=== PATIENT | male | born 1930 | race Caucasian/White ===

== ENCOUNTER → 2017-06-23 | Outpatient (CLI) | payer MEDICARE, OTHER ==
[~2017-06-23] MED LIST: ACET-1757 PO; ASPI-515 PO; ASPI325T80 PO; CALC-112 PO; CHOL20002 PO; CLOP75TA52 PO; CYAN2000 PO; ESOM40CA PO; FURO20TA3 PO; FURO80TA3 PO; GLIP10TA13 PO; GLIP5TAB22 PO; IRBE150T49 PO; IRON1TAB37 PO; LEVO175T2 PO; PIOG30TA23 PO; POTA20PA25 PO; SIMV10TA PO; SITA50TA PO; VIT1TABL32 PO
== END | disposition home or self-care (01) ==
LOC: ROC 13:46
PROVIDERS: ATTEND Radiology Radiation Oncology
DX: G93.9 Disorder of brain, unspecified (principal); E11.22 Type 2 diabetes mellitus with diabetic chronic kidney disease; N18.9 Chronic kidney disease, unspecified; I48.0 Paroxysmal atrial fibrillation; Z85.820 Personal history of malignant melanoma of skin
CPT/HCPCS: G0463

== ENCOUNTER 2017-08-27 06:30 | Inpatient (IN) | payer MEDICARE, OTHER ==
[~2017-08-27] VITALS: Ht 185.4 cm; Wt 112.5 kg
[2017-08-27] MEDS ORDERED: FENTANYL PF 100 MCG/2ML ONE (08:23)
[2017-08-27] MEDS ORDERED: OXYcodone/APAP 5/325MG TABLET ONE (08:23)
[2017-08-27] MEDS ORDERED: FENTANYL PF 100 MCG/2ML IV ONE (08:30)
[2017-08-27] MEDS ORDERED: OXYcodone/APAP 5/325MG TABLET PO ONE (08:30)
[2017-08-27] MEDS ORDERED: DONE10TA56 PO (08:40)
[2017-08-27 08:42] LABS: BASOPHILS % (AUTO) 0 % (0-1); EOSINOPHILS # (AUTO) 0.12 x10^3/uL (0-0.4); EOSINOPHILS % (AUTO) 2 % (1-7); LYMPHOCYTES % (AUTO) 11 % (22-44); MD NO; MEAN CORPUSCULAR HEMOGLOBIN 31.9 pg (27.5-34.5); MEAN CORPUSCULAR HGB CONC 34.5 g/dL (33.2-36.2); MEAN CORPUSCULAR VOLUME 92.4 fL (81-97); MEAN PLATELET VOLUME 7.3 fL (7.4-10.4); MONOCYTES # (AUTO) 0.46 x10^3/uL (0.2-0.8); MONOCYTES % (AUTO) 6 % (2-9); NEUTROPHILS # (AUTO) 5.89 x10^3/uL (1.8-6.8); NEUTROPHILS % (AUTO) 81 % (42-75); PLATELET COUNT 113 x10^3/uL (130-400); RED BLOOD COUNT 3.72 x10^6/uL (4.38-5.82); RED CELL DISTRIBUTION WIDTH 13.8 % (9.4-14.8)
[2017-08-27 08:49] LABS: PROTHROMBIN TIME 10.4 Seconds (9.6-11.5)
[2017-08-27 08:53] LABS: ALBUMIN 3.4 g/dL (3.4-5.0); ANION GAP 7 mmol/L (5-15); CALCIUM 8.2 mg/dL (8.5-10.1); CHLORIDE 114 mmol/L (98-107); CREATININE 2.44 mg/dL (0.7-1.3)
[2017-08-27 08:57] LABS: TROPONIN I < 0.015 ng/mL (0.000-0.045)
[2017-08-27 11:03] VITALS: BP 164/67
[2017-08-27 15:22] VITALS: BP 168/77
[2017-08-27 15:41] LABS: TROPONIN I < 0.015 ng/mL (0.000-0.045)
[2017-08-27] MEDS ORDERED: MORPHINE SULFATE 4 MG/ML, 1ML ONE (15:44)
[2017-08-27] MEDS ORDERED: ONDANSETRON ODT 4 MG PO PRN (16:00)
[2017-08-27] MEDS ORDERED: ONDANSETRON 2MG/ML, 2ML IVPush PRN (16:00)
[2017-08-27] MEDS ORDERED: ACETAMINOPHEN 325 MG TABLET PO PRN (16:00)
[2017-08-27] MEDS ORDERED: HEPARIN 5,000 UNITS/ML, 1ML SQ SCH (16:00)
[2017-08-27] MEDS: ARTIFICIAL TEARS OINT 3.5 GM LEFTEYE SCH ×3 (16:00→21:37)
[2017-08-27] MEDS ORDERED: morphine SULFATE 10 MG/ML, 1ML IVPush PRN (16:00)
[2017-08-27 16:19] VITALS: BP_SYST 167; BP_SYST 168; BP_DIAS 68; BP_DIAS 77
[2017-08-27 16:20] VITALS: BP 177/84
[2017-08-27] MEDS ORDERED: DEXTROSE 4 GM TAB.CHEW PO PRN (18:00)
[2017-08-27] MEDS ORDERED: DEXTROSE 50%, 50ML SYRINGE IVPush PRN (18:00)
[2017-08-27] MEDS ORDERED: GLUCAGON 1 MG IM PRN (18:00)
[2017-08-27 18:37] VITALS: BP 135/62
[2017-08-27 18:52] LABS: CULTURE INDICATED? NO; MICROSCOPIC AUTO
[2017-08-27 21:21] LABS: TROPONIN I < 0.015 ng/mL (0.000-0.045)
[2017-08-27] MEDS: DONEPEZIL 10 MG TABLET PO SCH (21:37)
[2017-08-27] MEDS: ARTIFICIAL TEARS 15 DROP/ML BOTTLE LEFTEYE SCH ×2 (21:37→22:00)
[2017-08-27] MEDS: LIDODERM 5% PATCH TD SCH (21:37)
[2017-08-27] MEDS: INSULIN LISPRO 100 UNITS/ML, PEN SQ-INSULIN SCH (21:38)
[2017-08-27] MEDS: SODIUM CHLORIDE FLUSH 10ML SYR IVF SCH (21:38)
[2017-08-28 00:23] VITALS: BP 142/70
[2017-08-28 00:57] LABS: BASOPHILS # (AUTO) 0.02 x10^3/uL (0-0.1); BASOPHILS % (AUTO) 0 % (0-1); EOSINOPHILS # (AUTO) 0.13 x10^3/uL (0-0.4); EOSINOPHILS % (AUTO) 2 % (1-7); LYMPHOCYTES % (AUTO) 16 % (22-44); MD NO; MEAN CORPUSCULAR HEMOGLOBIN 30.9 pg (27.5-34.5); MEAN CORPUSCULAR HGB CONC 33.2 g/dL (33.2-36.2); MEAN CORPUSCULAR VOLUME 92.9 fL (81-97); MONOCYTES # (AUTO) 0.61 x10^3/uL (0.2-0.8); MONOCYTES % (AUTO) 10 % (2-9); NEUTROPHILS # (AUTO) 4.43 x10^3/uL (1.8-6.8); NEUTROPHILS % (AUTO) 72 % (42-75); PLATELET COUNT 105 x10^3/uL (130-400); RED BLOOD COUNT 3.48 x10^6/uL (4.38-5.82)
[2017-08-28 01:11] LABS: ALANINE AMINOTRANSFERASE 17 U/L (12-78); ALBUMIN 3.1 g/dL (3.4-5.0); ANION GAP 5 mmol/L (5-15); CHLORIDE 116 mmol/L (98-107); CHOLESTEROL, TOTAL 92 mg/dL (140-239); CREATININE 2.34 mg/dL (0.7-1.3)
[2017-08-28 01:13] LABS: TROPONIN I < 0.015 ng/mL (0.000-0.045)
[2017-08-28 01:21] LABS: ALKALINE PHOSPHATASE 49 U/L (45-117); BILIRUBIN,TOTAL 0.5 mg/dL (0.2-1.0); CHOL/HDL RATIO 2.5; HDL CHOL % 40 % (26-37); HDL CHOLESTEROL (DIRECT) 37 mg/dL (40-60); LDL CHOLESTEROL,CALCULATED 27 mg/dL (54-169); LDL/HDL RATIO 0.7 (0.5-3.0); TOTAL PROTEIN 6.3 g/dL (6.4-8.2); TRIGLYCERIDES 141 mg/dL (50-200); VLDL CHOLESTEROL 28 mg/dL (0-25)
[2017-08-28] MEDS: ARTIFICIAL TEARS OINT 3.5 GM LEFTEYE SCH (06:21)
[2017-08-28] MEDS: ARTIFICIAL TEARS 15 DROP/ML BOTTLE LEFTEYE SCH ×5 (06:22→22:04)
[2017-08-28] MEDS: LEVOTHYROXINE 175 MCG TABLET PO SCH (06:22)
[2017-08-28] MEDS: INSULIN LISPRO 100 UNITS/ML, PEN SQ-INSULIN SCH ×4 (07:00→20:23)
[2017-08-28 08:00] VITALS: BP 190/69
[2017-08-28] MEDS: SODIUM CHLORIDE FLUSH 10ML SYR IVF SCH ×2 (09:18→22:04)
[2017-08-28] MEDS: IRBESARTAN 150 MG TABLET PO SCH (09:18)
[2017-08-28] MEDS ORDERED: hydrALAzine 20 MG/ML, 1ML IV PRN (10:00)
[2017-08-28 10:47] VITALS: BP 162/75
[2017-08-28 13:11] LABS: HEMOGLOBIN A1C 6.8 % (4.2-6.3)
[2017-08-28 13:56] VITALS: BP 138/62
[2017-08-28] MEDS: DONEPEZIL 10 MG TABLET PO SCH (16:37)
[2017-08-28] MEDS: LIDODERM 5% PATCH TD SCH (16:40)
[2017-08-28] MEDS: AMLODIPINE 5 MG TABLET PO SCH (16:42)
[2017-08-28 18:34] VITALS: BP 182/82
[2017-08-28 20:20] VITALS: BP 181/73
[2017-08-28] MEDS: RISPERIDONE 0.5 MG TABLET PO PRN (22:01)
[2017-08-29 00:42] VITALS: BP 170/73
[2017-08-29 05:13] LABS: BASOPHILS # (AUTO) 0.02 x10^3/uL (0-0.1); BASOPHILS % (AUTO) 0 % (0-1); EOSINOPHILS # (AUTO) 0.11 x10^3/uL (0-0.4); EOSINOPHILS % (AUTO) 2 % (1-7); LYMPHOCYTES # (AUTO) 1.16 x10^3/uL (1-3.4); LYMPHOCYTES % (AUTO) 17 % (22-44); MD NO; MEAN CORPUSCULAR HEMOGLOBIN 31.1 pg (27.5-34.5); MEAN CORPUSCULAR HGB CONC 33.5 g/dL (33.2-36.2); MEAN CORPUSCULAR VOLUME 92.9 fL (81-97); MEAN PLATELET VOLUME 7.5 fL (7.4-10.4); MONOCYTES # (AUTO) 0.65 x10^3/uL (0.2-0.8); MONOCYTES % (AUTO) 10 % (2-9); NEUTROPHILS # (AUTO) 4.84 x10^3/uL (1.8-6.8); NEUTROPHILS % (AUTO) 71 % (42-75); PLATELET COUNT 109 x10^3/uL (130-400); RED BLOOD COUNT 3.69 x10^6/uL (4.38-5.82); RED CELL DISTRIBUTION WIDTH 13.2 % (9.4-14.8)
[2017-08-29 05:17] LABS: ANION GAP 7 mmol/L (5-15); CALCIUM 8.3 mg/dL (8.5-10.1); CHLORIDE 111 mmol/L (98-107); CREATININE 2.26 mg/dL (0.7-1.3)
[2017-08-29] MEDS: LEVOTHYROXINE 175 MCG TABLET PO SCH (05:38)
[2017-08-29] MEDS: ARTIFICIAL TEARS 15 DROP/ML BOTTLE LEFTEYE SCH ×2 (05:38→07:33)
[2017-08-29] MEDS: INSULIN LISPRO 100 UNITS/ML, PEN SQ-INSULIN SCH ×5 (07:00→20:13)
[2017-08-29 07:26] VITALS: BP 155/71
[2017-08-29] MEDS: AMLODIPINE 5 MG TABLET PO SCH (07:32)
[2017-08-29] MEDS: IRBESARTAN 150 MG TABLET PO SCH (07:32)
[2017-08-29] MEDS: SODIUM CHLORIDE FLUSH 10ML SYR IVF SCH ×2 (07:32→20:55)
[2017-08-29] MEDS: BACITRACIN/POLYMYXIN B OPHTH OINT 3.5GM LEFTEYE SCH ×3 (12:30→20:55)
[2017-08-29 15:55] VITALS: BP 128/75
[2017-08-29] MEDS: DONEPEZIL 10 MG TABLET PO SCH (16:54)
[2017-08-29] MEDS: LIDODERM 5% PATCH TD SCH (18:34)
[2017-08-29 18:54] VITALS: BP 146/70
[2017-08-30] MEDS: BACITRACIN/POLYMYXIN B OPHTH OINT 3.5GM LEFTEYE SCH ×6 (00:40→21:16)
[2017-08-30 00:43] VITALS: BP 145/66
[2017-08-30] MEDS: LEVOTHYROXINE 175 MCG TABLET PO SCH (04:33)
[2017-08-30 05:42] LABS: CHLORIDE 113 mmol/L (98-107)
[2017-08-30 05:46] LABS: ANION GAP 10 mmol/L (5-15); CALCIUM 8.2 mg/dL (8.5-10.1); CREATININE 2.34 mg/dL (0.7-1.3)
[2017-08-30 05:48] LABS: BASOPHILS # (AUTO) 0.01 x10^3/uL (0-0.1); BASOPHILS % (AUTO) 0 % (0-1); EOSINOPHILS # (AUTO) 0.14 x10^3/uL (0-0.4); EOSINOPHILS % (AUTO) 3 % (1-7); LYMPHOCYTES # (AUTO) 1.19 x10^3/uL (1-3.4); LYMPHOCYTES % (AUTO) 24 % (22-44); MD NO; MEAN CORPUSCULAR HEMOGLOBIN 31.7 pg (27.5-34.5); MEAN CORPUSCULAR HGB CONC 33.7 g/dL (33.2-36.2); MEAN CORPUSCULAR VOLUME 94.1 fL (81-97); MEAN PLATELET VOLUME 7.3 fL (7.4-10.4); MONOCYTES # (AUTO) 0.51 x10^3/uL (0.2-0.8); MONOCYTES % (AUTO) 10 % (2-9); NEUTROPHILS # (AUTO) 3.19 x10^3/uL (1.8-6.8); NEUTROPHILS % (AUTO) 63 % (42-75); PLATELET COUNT 103 x10^3/uL (130-400); RED BLOOD COUNT 3.45 x10^6/uL (4.38-5.82); RED CELL DISTRIBUTION WIDTH 13.9 % (9.4-14.8)
[2017-08-30] MEDS: INSULIN LISPRO 100 UNITS/ML, PEN SQ-INSULIN SCH ×4 (07:00→21:17)
[2017-08-30] MEDS: AMLODIPINE 5 MG TABLET PO SCH (07:52)
[2017-08-30] MEDS: IRBESARTAN 150 MG TABLET PO SCH (07:52)
[2017-08-30] MEDS: ARTIFICIAL TEARS 15 DROP/ML BOTTLE RIGHTEYE SCH ×2 (07:53→21:15)
[2017-08-30] MEDS: SODIUM CHLORIDE FLUSH 10ML SYR IVF SCH ×2 (07:53→21:15)
[2017-08-30 08:30] VITALS: BP 159/84
[2017-08-30] MEDS ORDERED: CLOP75TA52 PO (10:53)
[2017-08-30] MEDS ORDERED: MORPHINE SULFATE 4 MG/ML, 1ML IVPush PRN (12:00)
[2017-08-30 13:09] VITALS: BP 109/65
[2017-08-30] MEDS ORDERED: CITA10TA4 PO (15:58)
[2017-08-30] MEDS ORDERED: CETI-158 PO (15:58)
[2017-08-30] MEDS ORDERED: IRBE75TA10 PO (15:58)
[2017-08-30] MEDS: DONEPEZIL 10 MG TABLET PO SCH (16:24)
[2017-08-30] MEDS: LIDODERM 5% PATCH TD SCH (18:22)
[2017-08-30 18:54] VITALS: BP 123/72
[2017-08-31] MEDS: BACITRACIN/POLYMYXIN B OPHTH OINT 3.5GM LEFTEYE SCH ×6 (01:00→22:01)
[2017-08-31 01:30] VITALS: BP 144/79
[2017-08-31] MEDS ORDERED: VITA150T PO (01:57)
[2017-08-31] MEDS ORDERED: CYAN100028 PO (01:57)
[2017-08-31] MEDS ORDERED: CHOL5000 PO (01:57)
[2017-08-31] MEDS ORDERED: LEVO125T5 PO (01:57)
[2017-08-31] MEDS ORDERED: VIT1CAPS42 PO (01:57)
[2017-08-31] MEDS ORDERED: GLIP5TAB10 PO (01:57)
[2017-08-31 05:16] LABS: ANION GAP 7 mmol/L (5-15); CALCIUM 8.4 mg/dL (8.5-10.1); CHLORIDE 112 mmol/L (98-107)
[2017-08-31 05:17] LABS: CREATININE 2.63 mg/dL (0.7-1.3); MEAN CORPUSCULAR HEMOGLOBIN 32.3 pg (27.5-34.5); MEAN CORPUSCULAR HGB CONC 34.5 g/dL (33.2-36.2); MEAN CORPUSCULAR VOLUME 93.7 fL (81-97); RED BLOOD COUNT 3.37 x10^6/uL (4.38-5.82); RED CELL DISTRIBUTION WIDTH 13.2 % (9.4-14.8)
[2017-08-31] MEDS: LEVOTHYROXINE 125 MCG TABLET PO SCH (05:23)
[2017-08-31 05:45] LABS: BASOPHILS # (AUTO) 0.01 x10^3/uL (0-0.1); BASOPHILS % (AUTO) 0 % (0-1); EOSINOPHILS # (AUTO) 0.11 x10^3/uL (0-0.4); EOSINOPHILS % (AUTO) 2 % (1-7); LYMPHOCYTES # (AUTO) 0.91 x10^3/uL (1-3.4); LYMPHOCYTES % (AUTO) 17 % (22-44); MD SCAN; MEAN PLATELET VOLUME 7.4 fL (7.4-10.4); MONOCYTES # (AUTO) 0.59 x10^3/uL (0.2-0.8); MONOCYTES % (AUTO) 11 % (2-9); NEUTROPHILS # (AUTO) 3.89 x10^3/uL (1.8-6.8); NEUTROPHILS % (AUTO) 70 % (42-75); PLATELET COUNT 89 x10^3/uL (130-400)
[2017-08-31] MEDS: INSULIN LISPRO 100 UNITS/ML, PEN SQ-INSULIN SCH ×4 (07:00→22:02)
[2017-08-31 08:16] VITALS: BP 150/65
[2017-08-31] MEDS ORDERED: CLOPIDOGREL 75 MG TABLET PO SCH (09:00)
[2017-08-31] MEDS: AMLODIPINE 5 MG TABLET PO SCH (09:19)
[2017-08-31] MEDS: ASCORBIC ACID 500 MG TABLET PO SCH (09:20)
[2017-08-31] MEDS: CHOLECALCIFEROL 1,000 UNIT TABLET PO SCH (09:20)
[2017-08-31] MEDS: IRBESARTAN 150 MG TABLET PO SCH (09:20)
[2017-08-31] MEDS: CYANOCOBALAMIN 1,000 MCG TABLET PO SCH (09:20)
[2017-08-31] MEDS: DONEPEZIL 10 MG TABLET PO SCH (09:20)
[2017-08-31] MEDS: ARTIFICIAL TEARS 15 DROP/ML BOTTLE RIGHTEYE SCH ×2 (09:35→22:01)
[2017-08-31] MEDS: SODIUM CHLORIDE FLUSH 10ML SYR IVF SCH ×2 (09:35→22:01)
[2017-08-31] MEDS ORDERED: OXYcodone 5 MG/5 ML ORAL.SOL UDC PO PRN (12:30)
[2017-08-31 12:57] VITALS: BP 159/91
[2017-08-31] MEDS: OXYcodone IR 5MG TABLET PO PRN (12:59)
[2017-08-31] MEDS: LIDODERM 5% PATCH TD SCH (18:08)
[2017-08-31 19:51] VITALS: BP 165/74
[2017-09-01 01:52] VITALS: BP 158/69
[2017-09-01] MEDS: BACITRACIN/POLYMYXIN B OPHTH OINT 3.5GM LEFTEYE SCH ×6 (01:58→22:16)
[2017-09-01 05:11] LABS: ALBUMIN 3.1 g/dL (3.4-5.0); ANION GAP 8 mmol/L (5-15); CALCIUM 8.9 mg/dL (8.5-10.1); CHLORIDE 109 mmol/L (98-107); CREATININE 2.48 mg/dL (0.7-1.3)
[2017-09-01 05:16] LABS: MEAN CORPUSCULAR HEMOGLOBIN 31.9 pg (27.5-34.5); MEAN CORPUSCULAR HGB CONC 33.8 g/dL (33.2-36.2); MEAN CORPUSCULAR VOLUME 94.4 fL (81-97); MEAN PLATELET VOLUME 7.1 fL (7.4-10.4); PLATELET COUNT 89 x10^3/uL (130-400); RED BLOOD COUNT 3.42 x10^6/uL (4.38-5.82); RED CELL DISTRIBUTION WIDTH 13.5 % (9.4-14.8)
[2017-09-01 06:05] LABS: BASOPHILS # (AUTO) 0.01 x10^3/uL (0-0.1); BASOPHILS % (AUTO) 0 % (0-1); EOSINOPHILS # (AUTO) 0.14 x10^3/uL (0-0.4); EOSINOPHILS % (AUTO) 3 % (1-7); LYMPHOCYTES % (AUTO) 19 % (22-44); MD SCAN; MONOCYTES # (AUTO) 0.59 x10^3/uL (0.2-0.8); MONOCYTES % (AUTO) 12 % (2-9); NEUTROPHILS # (AUTO) 3.26 x10^3/uL (1.8-6.8); NEUTROPHILS % (AUTO) 66 % (42-75)
[2017-09-01] MEDS: LEVOTHYROXINE 125 MCG TABLET PO SCH (06:31)
[2017-09-01 08:48] VITALS: BP 139/74
[2017-09-01] MEDS: DONEPEZIL 10 MG TABLET PO SCH (09:08)
[2017-09-01] MEDS: IRBESARTAN 150 MG TABLET PO SCH (09:08)
[2017-09-01] MEDS: AMLODIPINE 5 MG TABLET PO SCH (09:09)
[2017-09-01] MEDS: ASCORBIC ACID 500 MG TABLET PO SCH (09:10)
[2017-09-01] MEDS: CHOLECALCIFEROL 1,000 UNIT TABLET PO SCH (09:13)
[2017-09-01] MEDS: CYANOCOBALAMIN 1,000 MCG TABLET PO SCH (09:14)
[2017-09-01] MEDS: SODIUM CHLORIDE FLUSH 10ML SYR IVF SCH ×2 (09:15→20:57)
[2017-09-01] MEDS: ARTIFICIAL TEARS 15 DROP/ML BOTTLE RIGHTEYE SCH ×2 (09:15→20:57)
[2017-09-01] MEDS: INSULIN LISPRO 100 UNITS/ML, PEN SQ-INSULIN SCH ×4 (09:17→20:56)
[2017-09-01] MEDS: OXYcodone IR 5MG TABLET PO PRN (13:11)
[2017-09-01 14:16] LABS: D-DIMER (DIC) 1.26 ug/mlFEU (0.00-0.52); PROTIME 10.1 Seconds (9.6-11.5)
[2017-09-01 15:39] VITALS: BP 154/76
[2017-09-01] MEDS: LIDODERM 5% PATCH TD SCH (18:03)
[2017-09-01 19:08] VITALS: BP 165/72
[2017-09-01] MEDS: RISPERIDONE 0.5 MG TABLET PO PRN (20:59)
[2017-09-02] MEDS ORDERED: HALOPERIDOL 5 MG/ML IV ONE (04:00)
[2017-09-02] MEDS ORDERED: HALOPERIDOL 5 MG/ML ONE (04:08)
[2017-09-02] MEDS: BACITRACIN/POLYMYXIN B OPHTH OINT 3.5GM LEFTEYE SCH ×5 (04:32→21:08)
[2017-09-02 04:40] VITALS: BP 144/75
[2017-09-02 05:37] LABS: MEAN CORPUSCULAR HEMOGLOBIN 31.6 pg (27.5-34.5); MEAN CORPUSCULAR HGB CONC 33.5 g/dL (33.2-36.2); MEAN CORPUSCULAR VOLUME 94.2 fL (81-97); RED CELL DISTRIBUTION WIDTH 13.6 % (9.4-14.8)
[2017-09-02 05:40] LABS: INTERNATIONAL NORMALIZED RATIO 1.02 (0.93-1.1); PROTHROMBIN TIME 10.5 Seconds (9.6-11.5)
[2017-09-02 06:08] LABS: BASOPHILS # (AUTO) 0.01 x10^3/uL (0-0.1); BASOPHILS % (AUTO) 0 % (0-1); EOSINOPHILS # (AUTO) 0.11 x10^3/uL (0-0.4); EOSINOPHILS % (AUTO) 3 % (1-7); LYMPHOCYTES # (AUTO) 0.71 x10^3/uL (1-3.4); LYMPHOCYTES % (AUTO) 16 % (22-44); MD SCAN; MEAN PLATELET VOLUME 7.1 fL (7.4-10.4); MONOCYTES # (AUTO) 0.49 x10^3/uL (0.2-0.8); MONOCYTES % (AUTO) 11 % (2-9); NEUTROPHILS # (AUTO) 3.15 x10^3/uL (1.8-6.8); NEUTROPHILS % (AUTO) 71 % (42-75); PLATELET COUNT 86 x10^3/uL (130-400)
[2017-09-02 06:16] LABS: CHLORIDE 110 mmol/L (98-107)
[2017-09-02 06:26] LABS: ALBUMIN 3.2 g/dL (3.4-5.0); ANION GAP 11 mmol/L (5-15); CALCIUM 9.3 mg/dL (8.5-10.1); CREATININE 2.51 mg/dL (0.7-1.3)
[2017-09-02 06:52] VITALS: BP 161/83
[2017-09-02] MEDS: ARTIFICIAL TEARS 15 DROP/ML BOTTLE RIGHTEYE SCH ×2 (09:00→21:08)
[2017-09-02] MEDS: CHOLECALCIFEROL 1,000 UNIT TABLET PO SCH (09:00)
[2017-09-02] MEDS: AMLODIPINE 5 MG TABLET PO SCH (09:00)
[2017-09-02] MEDS: CYANOCOBALAMIN 1,000 MCG TABLET PO SCH (09:36)
[2017-09-02] MEDS: IRBESARTAN 150 MG TABLET PO SCH (09:36)
[2017-09-02] MEDS: ASCORBIC ACID 500 MG TABLET PO SCH (09:37)
[2017-09-02] MEDS: SODIUM CHLORIDE FLUSH 10ML SYR IVF SCH ×2 (09:37→21:00)
[2017-09-02] MEDS: LEVOTHYROXINE 125 MCG TABLET PO SCH (09:37)
[2017-09-02] MEDS: DONEPEZIL 10 MG TABLET PO SCH ×2 (09:37→15:30)
[2017-09-02] MEDS: INSULIN LISPRO 100 UNITS/ML, PEN SQ-INSULIN SCH ×4 (09:39→21:09)
[2017-09-02 13:53] VITALS: BP 129/70
[2017-09-02 17:47] LABS: ANA SCREEN POSITIVE (Negative); ANTI-NUCLEAR ANTIBODY PATTERN HOMOGENOUS
[2017-09-02] MEDS: LIDODERM 5% PATCH TD SCH (17:58)
[2017-09-02 19:00] VITALS: BP 167/70
[2017-09-02] MEDS ORDERED: CITALOPRAM 10 MG TABLET PO SCH (21:00)
[2017-09-02] MEDS: RISPERIDONE 0.5 MG TABLET PO PRN (21:07)
[2017-09-02] MEDS: OXYcodone IR 5MG TABLET PO PRN (23:44)
[2017-09-03] MEDS: BACITRACIN/POLYMYXIN B OPHTH OINT 3.5GM LEFTEYE SCH ×5 (01:07→17:24)
[2017-09-03 03:33] VITALS: BP 157/80
[2017-09-03] MEDS: LEVOTHYROXINE 125 MCG TABLET PO SCH (05:46)
[2017-09-03 05:52] LABS: MEAN CORPUSCULAR HEMOGLOBIN 31.2 pg (27.5-34.5); MEAN CORPUSCULAR HGB CONC 33.5 g/dL (33.2-36.2); MEAN CORPUSCULAR VOLUME 93.3 fL (81-97); RED BLOOD COUNT 3.35 x10^6/uL (4.38-5.82); RED CELL DISTRIBUTION WIDTH 13.3 % (9.4-14.8)
[2017-09-03 05:54] LABS: ALBUMIN 2.9 g/dL (3.4-5.0); ANION GAP 9 mmol/L (5-15); CALCIUM 8.5 mg/dL (8.5-10.1); CHLORIDE 110 mmol/L (98-107)
[2017-09-03 05:57] LABS: CREATININE 2.44 mg/dL (0.7-1.3)
[2017-09-03 06:19] LABS: BASOPHILS # (AUTO) 0.02 x10^3/uL (0-0.1); BASOPHILS % (AUTO) 1 % (0-1); EOSINOPHILS # (AUTO) 0.12 x10^3/uL (0-0.4); EOSINOPHILS % (AUTO) 3 % (1-7); LYMPHOCYTES # (AUTO) 0.87 x10^3/uL (1-3.4); LYMPHOCYTES % (AUTO) 18 % (22-44); MD SCAN; MEAN PLATELET VOLUME 7.5 fL (7.4-10.4); MONOCYTES % (AUTO) 10 % (2-9); NEUTROPHILS # (AUTO) 3.27 x10^3/uL (1.8-6.8); NEUTROPHILS % (AUTO) 68 % (42-75); PLATELET COUNT 88 x10^3/uL (130-400)
[2017-09-03 07:49] VITALS: BP 164/73
[2017-09-03] MEDS: INSULIN LISPRO 100 UNITS/ML, PEN SQ-INSULIN SCH ×3 (08:50→17:31)
[2017-09-03] MEDS ORDERED: CETIRIZINE 10 MG TABLET PO SCH (09:00)
[2017-09-03] MEDS: SODIUM CHLORIDE FLUSH 10ML SYR IVF SCH (09:00)
[2017-09-03] MEDS: IRBESARTAN 150 MG TABLET PO SCH (10:28)
[2017-09-03] MEDS: CHOLECALCIFEROL 1,000 UNIT TABLET PO SCH (10:28)
[2017-09-03] MEDS: ASCORBIC ACID 500 MG TABLET PO SCH (10:28)
[2017-09-03] MEDS: CYANOCOBALAMIN 1,000 MCG TABLET PO SCH (10:29)
[2017-09-03] MEDS: AMLODIPINE 5 MG TABLET PO SCH (10:29)
[2017-09-03] MEDS: ARTIFICIAL TEARS 15 DROP/ML BOTTLE RIGHTEYE SCH (10:30)
[2017-09-03] MEDS: DONEPEZIL 10 MG TABLET PO SCH (15:26)
[2017-09-03 15:30] VITALS: BP 130/77
[2017-09-03] MEDS ORDERED: LIDO700A20 TD (16:24)
[2017-09-03] MEDS ORDERED: PEG15DRO4 RIGHTEYE (16:24)
[2017-09-03] MEDS ORDERED: INSU100I11 SQ-INSULIN (16:24)
[2017-09-03] MEDS ORDERED: BACI3.5O4 LEFTEYE (16:24)
[2017-09-03] MEDS ORDERED: ACET325T14 PO (16:24)
[2017-09-03] MEDS ORDERED: AMLO5TAB2 PO (16:24)
[2017-09-03] MEDS: RISPERIDONE 0.5 MG TABLET PO PRN (17:25)
[2017-09-03] MEDS: LIDODERM 5% PATCH TD SCH (17:34)
== END 2017-09-03 18:44 | DRG 184 ==
LOC: ED 08:51 → EDIP 08:52 → ED 09:07 → 5SO 10:32 → 4EST 09-01 15:39
PROVIDERS: ADMIT Internal Medicine; ATTEND Internal Medicine
PROC: 5A09357 Assistance with Respiratory Ventilation, Less than 24 Consecutive Hours, Continuous Positive Airway Pressure (ICD-10-PCS; principal; 2017-08-28)
PROC: 5A09357 Assistance with Respiratory Ventilation, Less than 24 Consecutive Hours, Continuous Positive Airway Pressure (ICD-10-PCS; 2017-08-31)
PROC: 5A09357 Assistance with Respiratory Ventilation, Less than 24 Consecutive Hours, Continuous Positive Airway Pressure (ICD-10-PCS; 2017-09-02)
PROC: 5A09357 Assistance with Respiratory Ventilation, Less than 24 Consecutive Hours, Continuous Positive Airway Pressure (ICD-10-PCS; 2017-09-03)
DX: S22.42XA Multiple fractures of ribs, left side, initial encounter for closed fracture (principal); N18.5 Chronic kidney disease, stage 5; E44.1 Mild protein-calorie malnutrition; I12.0 Hypertensive chronic kidney disease with stage 5 chronic kidney disease or end stage renal disease; D69.6 Thrombocytopenia, unspecified; E11.22 Type 2 diabetes mellitus with diabetic chronic kidney disease; G93.89 Other specified disorders of brain; D49.6 Neoplasm of unspecified behavior of brain; H11.32 Conjunctival hemorrhage, left eye; R00.1 Bradycardia, unspecified; E03.9 Hypothyroidism, unspecified; F03.90 Unspecified dementia, unspecified severity, without behavioral disturbance, psychotic disturbance, mood disturbance, and anxiety; G47.33 Obstructive sleep apnea (adult) (pediatric); I25.10 Atherosclerotic heart disease of native coronary artery without angina pectoris; I69.320 Aphasia following cerebral infarction; K21.9 Gastro-esophageal reflux disease without esophagitis; W06.XXXA Fall from bed, initial encounter; S01.81XA Laceration without foreign body of other part of head, initial encounter; R55 Syncope and collapse; D50.9 Iron deficiency anemia, unspecified; R00.0 Tachycardia, unspecified; Y93.89 Activity, other specified; Y92.89 Other specified places as the place of occurrence of the external cause; Y99.2 Volunteer activity; Z79.02 Long term (current) use of antithrombotics/antiplatelets; Z85.820 Personal history of malignant melanoma of skin; Z85.841 Personal history of malignant neoplasm of brain; Z86.718 Personal history of other venous thrombosis and embolism; Z87.891 Personal history of nicotine dependence; I69.398 Other sequelae of cerebral infarction
CPT/HCPCS: 36415; 70450; 70551; 71250; 72125; 80048; 80053; 80061; 81001; 82040; 82962; 83036; 83735; 83880; 84100; 84443; 84484; 85025; 85049; 85379; 85384; 85610; 85730; 86038; 86039; 93005; 93306; 93880; 93970; 96374; J3010; Q0162; J0360; J1630; J1815; J2270

== ENCOUNTER → 2017-12-29 | Outpatient (CLI) | payer MEDICARE, OTHER ==
[~2017-12-29] MED LIST changes: +ACET325T14 PO; +AMLO5TAB7 PO; +BACI3.5O4 LEFTEYE; +CETI-158 PO; -CHOL20002 PO; +CHOL200052 PO; +CHOL5000 PO; +CITA10TA4 PO; +CYAN100028 PO; +DONE10TA56 PO; +GLIP5TAB10 PO; +INSU100I11 SQ-INSULIN; +IRBE75TA10 PO; +LEVO125T5 PO; +LIDO700A20 TD; +PEG15DRO4 RIGHTEYE; +VIT1CAPS42 PO; +VITA150T PO
== END | disposition home or self-care (01) ==
LOC: CFH 13:04
PROVIDERS: ATTEND Neurological Surgery
DX: I63.89 Other cerebral infarction (principal); G31.9 Degenerative disease of nervous system, unspecified; G93.89 Other specified disorders of brain
CPT/HCPCS: 70551

== ENCOUNTER 2020-05-11 03:11 | Emergency (ER) | payer MEDICARE, OTHER ==
[~2020-05-11] VITALS: Ht 182.9 cm; Wt 100.0 kg
[~2020-05-11 03:11] MED LIST changes: -ACET-1757 PO; +ACET-2065 PO; +AMLO-150 PO; -AMLO5TAB7 PO; -ASPI-515 PO; +ASPI-963 PO; -IRBE75TA10 PO; +IRBE75TA6 PO
[2020-05-11] MEDS ORDERED: LIDOCAINE-MPF 1%, 5ML ONE ×2 (03:29)
[2020-05-11] MEDS ORDERED: LIDOCAINE 1%, 10ML INFIL ONE (03:30)
--- NOTE | 2020-05-11 03:45 | NUR ---
PATIENT BACK FROM CT. POSTERIOR HEAD LAC/AVULSION CLEANSED WITH STERILE WATER AND 4X4 GUAZE. LACERATION STAPLED BY PA AND LOOSE GAUZE APPLIED TO TORREY WITH LIMITED BLEEDING. PACK OF GAUZE GIVEN TO FAMILY. PATIENT ON HOSPICE CARE AND HOSPICE NURSE WOULD BE IN TO SEE PATIENT AT HOME AND AWARE OF HAVING TO TAKE TORREY OUT, FAMILY ASKED FOR STAPLE REMOVER IN CASE [employer]ER COULD REMOVE THEM HERSELF IN 5 DAYS. PATIENT REMAINS BASELINE ORIENTED AND ALERT.
--- NOTE | 2020-05-11 04:08 | NUR ---
DISCHARGE INSTRUCTIONS REVIEWED WITH PATIENT, SON AND AT BEDSIDE. NO FURTHER QUESTIONS AT THIS TIME. NO PRESCRIPTIONS. ALL PERSONAL BELONGINGS WITH PATIENT. NEW DONATED SHIRT PROVIDED TO PATIENT DUE TO HIS WAS BLOODIED BY LACERATION. STAND PIVOT WITH TWO ASSIST TO WC. NO IV PLACED DURING THIS VISIT
[2020-05-11 04:09] VITALS: BP 159/81
== END 2020-05-11 04:12 | disposition home or self-care (01) ==
LOC: ED 03:52
DX: S01.01XA Laceration without foreign body of scalp, initial encounter (principal); I10 Essential (primary) hypertension; K21.9 Gastro-esophageal reflux disease without esophagitis; E03.9 Hypothyroidism, unspecified; R94.31 Abnormal electrocardiogram [ECG] [EKG]; Z86.73 Personal history of transient ischemic attack (TIA), and cerebral infarction without residual deficits; Z90.49 Acquired absence of other specified parts of digestive tract; X58.XXXA Exposure to other specified factors, initial encounter; Y93.89 Activity, other specified; Y92.89 Other specified places as the place of occurrence of the external cause; Y99.8 Other external cause status
CPT/HCPCS: 12032; 70450; 93005; 99284; J3490